=== PATIENT | female | born 1995 | race Caucasian/White ===

== ENCOUNTER → 2017-01-04 | Outpatient (CLI) | payer OTHER | LOC: YCFC.O 15:56 | PROVIDERS: ATTEND Nurse Practitioner Family | DX: R50.9 Fever, unspecified (principal) ==

== ENCOUNTER 2017-05-25 19:29 | Emergency (ER) | payer OTHER ==
[2017-05-25] MEDS ORDERED: SODIUM CHLORIDE 0.9% 1000ML 1,000 ML IVS ONE ×2 (19:34→20:46)
--- NOTE | 2017-05-25 19:35 | ED.PDOC ---
History of Present Illness - General Chief Complaint: Headache Stated Complaint: severe headache Time Seen by Provider: 05/25/17 19:31 Source: patient, RN notes reviewed, Vital Signs reviewed Additional Information: Pt presented to ED in somewhat hysteria complaining of a severe headache. She was alert and did not appear photophobic although she did report that loud sounds and bright lights made her GARCÍA worse. Of note, Pt did disclose that her most recent use of methamphetamine was day before yesterday. She said her main goal was to have her GARCÍA feel better. She did better with lights off, quiet/ relaxed environment, and BZD. - History of Present Illness Timing/Duration: other - worsening over the past 1 to 2 days Quality: constant, sharp Recent Head Trauma: no recent headache/trauma Improving Factors: rest Worsening Factors: other - bright lights and loud noises Associated Symptoms: other - patient appears to be agitated Allergies/Adverse Reactions: Allergies Hydrocodone Adverse Reaction (Verified 05/25/17 19:37) Nausea Home Medications: Ambulatory Orders NK [NK] 12/27/15 Review of Systems - Review of Systems Constitutional: States: no symptoms reported EENTM: States: no symptoms reported Respiratory: States: no symptoms reported Cardiology: States: no symptoms reported Gastrointestinal/Abdominal: States: no symptoms reported Genitourinary: States: no symptoms reported Musculoskeletal: States: no symptoms reported Skin: States: no symptoms reported Neurological: States: see HPI, anxiety, headache Endocrine: States: no symptoms reported Hematologic/Lymphatic: States: no symptoms reported Past Medical History (General) - Patient Medical History Hx Other PMH: Yes - history of substance abuse - Vaccination History Hx Tetanus, Diphtheria Vaccination: No Hx Influenza Vaccination: No - Social History Hx Tobacco Use: Yes Hx Substance Use: Yes - Methamphetamine Family Medical History - Family History Mother Family History: Unknown Living Status: Unknown Physical Exam - Physical Exam General Appearance: Agitated, Unkempt Eyes, Ears, Nose, Throat Exam: PERRL/EOMI, pharynx normal Neck: non-tender, full range of motion, supple Cardiovascular/Chest: tachycardia Respiratory: no respiratory distress Gastrointestinal/Abdominal: soft Extremity: normal range of motion, non-tender 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 Patient responding well to BZD, rest, IV fluids. Will continue to monitor in a relaxed environment - patient's GARCÍA improving. - Results/Orders Results/Orders: 05/25/17 20:45 URINALYSIS Stat 05/25/17 20:46 Sodium Chloride 0.9% 1000ML [Ns 1000 ml] 1,000 ml IVS ONCE Laboratory Results - last 24 hr 05/25/17 05/25/17 05/25/17 19:32 19:42 20:10 WBC 4.3 L RBC 5.33 Hgb 14.8 Hct 44.9 MCV 84.1 MCH 27.8 MCHC 33.0 RDW 13.8 Plt Count 302 MPV 8.7 Absolute Neuts (auto) 3.20 Absolute Lymphs (auto) 1.00 Absolute Monos (auto) 0.00 L Absolute Eos (auto) 0.00 Absolute Basos (auto) 0.00 Neutrophils % 74.6 Lymphocytes % 23.1 Monocytes % 0.7 L Eosinophils % 1.2 Basophils % 0.4 Sodium Potassium Chloride Carbon Dioxide Anion Gap BUN Creatinine BUN/Creatinine Ratio Random Glucose Serum Osmolality Calcium Total Bilirubin AST ALT Alkaline Phosphatase Serum Total Protein Albumin Globulin Albumin/Globulin Ratio Urine Color Urine Appearance Urine pH Ur Specific [place] Urine Protein Urine Glucose (UA) Urine Ketones Urine Blood Urine Nitrite Urine Bilirubin Urine Urobilinogen Ur Leukocyte Esterase Urine RBC Urine WBC Ur Epithelial Cells Uric Acid Crystals Urine Bacteria Urine Mucus Urine HCG, Qual Negative Urine Opiates Screen Negative Urine Barbiturates Negative Ur Phencyclidine Scrn Negative U Amphetamin/Meth Scrn Positive H U Benzodiazepines Scrn Negative U Cocaine Metab Screen Negative U Cannabinoids Screen Positive H 05/25/17 05/25/17 20:10 20:40 WBC RBC Hgb Hct MCV MCH MCHC RDW Plt Count MPV Absolute Neuts (auto) Absolute Lymphs (auto) Absolute Monos (auto) Absolute Eos (auto) Absolute Basos (auto) Neutrophils % Lymphocytes % Monocytes % Eosinophils % Basophils % Sodium 141 Potassium 3.3 L Chloride 105 Carbon Dioxide 23 Anion Gap 16.3 BUN 18 Creatinine 0.98 BUN/Creatinine Ratio 18.4 Random Glucose 84 Serum Osmolality 282.4 Calcium 9.6 Total Bilirubin 0.7 AST 26 ALT 27 Alkaline Phosphatase 75 Serum Total Protein 8.3 H Albumin 5.2 Globulin 3.1 Albumin/Globulin Ratio 1.7 Urine Color Yellow Urine Appearance Clear Urine pH 6.0 Ur Specific [place] >= 1.030 Urine Protein Negative Urine Glucose (UA) Negative Urine Ketones Trace Urine Blood Negative Urine Nitrite Negative Urine Bilirubin Negative Urine Urobilinogen 0.2 Ur Leukocyte Esterase Negative Urine RBC 0 Urine WBC 1-3 Ur Epithelial Cells 3-5 Uric Acid Crystals 2+ Urine Bacteria 0 Urine Mucus Moderate Urine HCG, Qual Urine Opiates Screen Urine Barbiturates Ur Phencyclidine Scrn U Amphetamin/Meth Scrn U Benzodiazepines Scrn U Cocaine Metab Screen U Cannabinoids Screen CT Head Non-Contrast: PROCEDURE: Head CLINICAL HISTORY: 21 years Female severe headache COMPARISON: None. TECHNIQUE: Contiguous axial images obtained through the brain without IV contrast. This exam was performed according to our department optimization program which includes automated exposure control, adjustment of the mA and/or kv according to patient size and/or use of iterative reconstruction technique. FINDINGS: The ventricles and sulci are within normal limits for the patient's age. No midline shift or mass effect. No masses identified. No acute intracranial hemorrhage. No fluid or significant mucosal thickening in the visualized paranasal sinuses. No depressed calvarial fractures. IMPRESSION: No acute intracranial abnormality is identified. Electronically signed by: Marissa Martinez 05/25/2017 7:49 PM CDT Dictated By: Marissa Martinez MD Signed By: Marissa Martinez MD Dictated Date/Time: 05/25/171933 Transcribed Date/Time: 05/25/171933 Sodium Chlorite Operator: Signed Date/Time: 05/25/171948 CC: - EKG/XRAY/CT EKG: Sinus, Tachy - 113 bpm, no ST T wave changes Departure - Departure Clinical Impression: Methamphetamine abuse, Tachycardia Headache Qualifiers: Headache type: unspecified Headache chronicity pattern: acute headache Intractability: intractable Qualified Code(s): R51 - Headache Time of Disposition: 00:32 Disposition: Discharge to Home or Self Care Departure Forms: ED Discharge - Pt. Copy, Patient Portal Self Enrollment Referrals: ISHMAEL GARAY [Primary Care Provider] - 1-5 Days Home Medications: Ambulatory Orders NK [NK] 12/27/15 Additional Instructions: Please check out [facility] and/or call to receive safe, private assistance to help you take the steps necessary to eliminate meth from your life.
--- NOTE | 2017-05-25 19:50 | CT ---
PROCEDURE: Head CLINICAL HISTORY: 21 years Female severe headache COMPARISON: None. TECHNIQUE: Contiguous axial images obtained through the brain without IV contrast. This exam was performed according to our department optimization program which includes automated exposure control, adjustment of the mA and/or kv according to patient size and/or use of iterative reconstruction technique. FINDINGS: The ventricles and sulci are within normal limits for the patient's age. No midline shift or mass effect. No masses identified. No acute intracranial hemorrhage. No fluid or significant mucosal thickening in the visualized paranasal sinuses. No depressed calvarial fractures. IMPRESSION: No acute intracranial abnormality is identified. Electronically signed by: Marissa Martinez 05/25/2017 7:49 PM CDT
[2017-05-25] MEDS ORDERED: ONDANSETRON INJ 4 MG/2 ML VIAL IV ONE (19:56)
[2017-05-26 00:06] VITALS: O2SAT 98
[2017-05-26 00:50] VITALS: BP 120/77; TEMP 97.2
== END 2017-05-26 00:46 | disposition home or self-care (01) ==
LOC: ER 19:29
DX: R51 Headache (principal); R00.0 Tachycardia, unspecified; F15.10 Other stimulant abuse, uncomplicated; Z87.891 Personal history of nicotine dependence; Z88.6 Allergy status to analgesic agent
CPT/HCPCS: 36415; 70450; 80053; 80307; 81001; 81025; 85025; 93005; J2060; J2405; J7030

== ENCOUNTER 2019-04-19 20:50 | Emergency (ER) | payer OTHER ==
[2019-04-19] MEDS ORDERED: CHLORHEXIDINE GLUCONATE 4 % 15 ML UD TOP ONE (20:52)
[2019-04-19 21:10] VITALS: O2SAT 99
[2019-04-19] MEDS ORDERED: TETANUS,DIPHTHERIA,PERTUSSIS 1 EA SYG IM ONE (21:19)
[2019-04-19] MEDS ORDERED: ALPRAZolam 0.25 MG TAB PO ONE (21:19)
[2019-04-19] MEDS ORDERED: SULFA/TRIMETH 800/160 (DS) TAB 1 EA TAB PO ONE (21:20)
[2019-04-19] MEDS ORDERED: ALPRAZolam 0.5 MG TAB ONE (21:30)
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
[2019-04-19 22:11] VITALS: BP 143/77; TEMP 97.5
== END 2019-04-19 22:11 | disposition home or self-care (01) ==
LOC: ER 20:50
DX: S01.311A Laceration without foreign body of right ear, initial encounter (principal); S60.211A Contusion of right wrist, initial encounter; F15.10 Other stimulant abuse, uncomplicated; Y04.0XXA Assault by unarmed brawl or fight, initial encounter; Y07.03 Male partner, perpetrator of maltreatment and neglect; Y92.9 Unspecified place or not applicable; Z87.891 Personal history of nicotine dependence; Z88.5 Allergy status to narcotic agent